=== PATIENT | female | born 1950 | race Caucasian/White ===

== ENCOUNTER 2023-03-11 02:25 | Day surgery (SDC) | payer MEDICARE, BC, SELFPAY ==
[2023-03-08 13:39] VITALS: BMI 24.3
--- NOTE | 2023-03-08 14:00 | PC.NURSE ---
Report to the Outpatient Waiting Room, entrance under the green pavilion located off [facility], at time __1230 on date _03/11/23 . Planned Procedure Time: __2:30 PM . Time changes happen often and if your time is changed the preop area will call you the afternoon before. - You and your visitor will be asked to self-screen and do not enter if you have any COVID symptoms. - A mask is optional within the hospital at this time. Patients may have clear liquids (water, carbonated beverages, clear teas, apple juice) until 3 hours prior to surgery (1030 AM) with a maximum of 20 ounces. - No food from midnight until time of surgery - Infants may have breast milk until 4 hours before surgery, formula 6 hours prior to surgery. - Children will be allowed to drink immediately following surgery. If applicable, please bring a bottle or sippy cup to assist with drinking. Juice, water, soda, and popsicles are readily available. For infants on formula, please bring formula the day of surgery. Pacifiers are allowed. Take the following medications with a SIP of water the morning of surgery: NONE DO NOT STOP ANY OF YOUR OTHER PRESCRIPTION MEDICATIONS PRIOR TO SURGERY ?EXCEPT THE FOLLOWING Medications to discontinue per physician NONE Date to take last dose Please no make-up, nail yi, hairspray, perfume, deodorant, or body powder the day of surgery. No jewelry (including any body piercings) or valuables the day of surgery, leave them at home. Please take a shower or bath the night before, or the morning of, surgery with an antibacterial soap. Wear comfortable, loose fitting clothing. Children are encouraged to wear pajamas. - Jewelry must be removed prior to entering the operating room. Rings and piercings that are not removed may be cut off. - The hospital will not accept responsibility for valuables. - Please leave all valuables, including medications, at home the day of surgery. If you are going home after surgery, a licensed frontload driver must drive you home. - NO public transportation without another adult if you receive anesthesia. - We recommend that an adult stay with you for 24 hours following discharge. - We also recommend that you do not drive, make important decision, drink alcoholic beverages, or take any drugs that were not prescribed by your health care provider for at least 24 hours after your discharge time. For Pediatric surgeries, we recommend two adults accompany the child home. Follow any additional instructions given to you from your surgeon. If you or anyone in your household have experienced Covid symptoms in the past week, please notify your surgeon or the nurse liaison at the phone number below for possible testing. Telephone instructions given to ___PATIENT and asked if any additional questions and then verbalized understanding. Patient advised to call surgeon office or pre surgery nurse liaison [phone] if any additional questions.
--- NOTE | 2023-03-09 07:45 | P.HP_ITS ---
H&P: HPI History of Present Illness Date/Time: 03/09/23 07:45 Chief Complaint: Urethral prolapse Narrative: She has thrombosed urethral mucosa. It is circumferential. It is thrombosed. She is quite uncomfortable. There is no urinary retention Review of Systems Review of Systems: All systems reviewed & are unremarkable except as noted in HPI and below [facility] Social History Social History Smoking status: Never smoker Second hand tobacco smoke exposure: No Alcohol intake: never Substance use: never Substance use type: does not use Living arrangements: alone Spiritual care concerns: No Meds Home Medications and Allergies Home Medications Medication Instructions Recorded Confirmed Type escitalopram oxalate 10 mg tablet 10 mg HS 03/08/23 03/08/23 History estradiol 0.01% (0.1 mg/gram) See Rx Instructions .Route .COMPLEX 03/08/23 03/08/23 History vaginal cream ezetimibe 10 mg tablet 10 mg HS 03/08/23 03/08/23 History lisinopril 40 mg tablet 40 mg DAILY 03/08/23 03/08/23 History metoprolol succinate 25 mg 25 mg PO HS 03/08/23 03/08/23 History tablet,extended release 24 hr phenazopyridine 200 mg tablet 200 mg TID 03/08/23 03/08/23 History Allergies Allergy/AdvReac Type Severity Reaction Status Date / Time erythromycin base AdvReac Rash Verified 03/08/23 14:01 latex AdvReac SWELLIG TO Verified 03/08/23 13:33 LIPS Exam Narrative: With thrombosed urethral prolapse It is circumferential Assessment and Plan Assessment and plan (1) Prolapsed urethral mucosa: Code(s): N36.8 - Other specified disorders of urethra Status: Acute Assessment and Plan: Excision of urethral prolapse. Understands risks of bleeding, infection, damage to surrounding structures. She understands the risk of urinary incontinence. She understands risk of recurrence. She may or may not need to go home with a Farmer catheter.
[2023-03-11] VITALS (8 sets, daily range): BP systolic 123–154; BP diastolic 63–83; PULSE 64–75; RESP 12–18; TEMP 36.2–37.2; O2SAT 65–100
--- NOTE | 2023-03-11 07:17 | WPDHPUPDATE1 ---
History and Physical Update Update Date/Time: 03/11/23 07:17 History and Physical has been reviewed, including an updated exam of the patient. There are NO changes in the patient's condition. Risks, benefits, and alternatives have been discussed and questions answered. Patient agrees to proceed with procedure.
--- NOTE | 2023-03-11 10:17 | ECG_ITS ---
Measurements Intervals [place] Rate: 62 P: 56 [place]: 146 QRS: 37 QRSD: 78 T: 53 QT: 411 QTc: 420 Interpretive Statements SINUS RHYTHM WITH SINUS ARRHYTHMIA BORDERLINE ST-T WAVE ABNORMALITY- INFERIOR LEADS BASELINE ARTIFACT- I, II, III, AVR, AVF, V5 BORDERLINE ECG NO PREVIOUS ECG AVAILABLE FOR COMPARISON Electronically Signed On 03-11-2023 13:13:38 CDT by Doug Garcia D.O.
[2023-03-11] MEDS: LACTATED RINGERS 1,000 ML 30 ML IV CONT ×2 (13:30→15:07)
--- NOTE | 2023-03-11 13:54 | WPDANESEPPF ---
Anes - Initial Pre Proc Eval Procedure: Operation Date: 03/11/23 14:30 Proposed Procedures p Excision of Prolapse Urethral Mucosa - Rolando Colvin MD Date/Time: 03/11/23 13:54 Surgeon: Rolando Colvin MD Pre Op Diagnosis: prolapse urethral mucosa Patient Data Age: 72 Gender: F Height: 1.59 m Weight: 60.3 kg Last Vital Signs Temp 37.2 C 03/11/23 12:43 Pulse 68 03/11/23 12:43 Resp 18 03/11/23 12:43 BP 150/80 H 03/11/23 12:43 Pulse Ox 95 03/11/23 12:43 O2 Del Method Room Air 03/11/23 12:43 Allergies Allergy/AdvReac Type Severity Reaction Status Date / Time erythromycin base AdvReac Rash Verified 03/11/23 13:32 latex AdvReac SWELLIG TO Verified 03/11/23 13:32 LIPS Home Medications Medication Instructions Recorded Confirmed Type escitalopram oxalate 10 mg tablet 10 mg HS 03/08/23 03/11/23 History estradiol 0.01% (0.1 mg/gram) See Rx Instructions .Route .COMPLEX 03/08/23 03/11/23 History vaginal cream ezetimibe 10 mg tablet 10 mg HS 03/08/23 03/11/23 History lisinopril 40 mg tablet 40 mg DAILY 03/08/23 03/11/23 History metoprolol succinate 25 mg 25 mg PO HS 03/08/23 03/11/23 History tablet,extended release 24 hr phenazopyridine 200 mg tablet 200 mg TID 03/08/23 03/11/23 History Patient hx anesthesia problems: none Family hx anesthesia problems: none Results Review: All pre-operative results and documents have been reviewed as part of the pre-operative evaluation. [facility] Past Medical History Medical History (Updated 03/11/23 @ 13:54 by Zac Barbosa MD) Breast cancer HTN (hypertension) Hyperlipidemia Surgical History Surgical History (Updated 03/11/23 @ 13:54 by Zac Barbosa MD) History of mastectomy Social History Social History Smoking status: Never smoker Second hand tobacco smoke exposure: No Alcohol intake: never Substance use: never Substance use type: does not use Living arrangements: alone Spiritual care concerns: No Anes - Eval Final PreProcedure Day of Procedure 03/11/23 13:54 Patient weight: normal Heart: regular rate and rhythm Lungs: clear to auscultation Airway: Mallampati scale class II Neurological: alert and oriented Last oral intake: >/= 8 hours ASA classification: III Emergent: no Anesthetic plan: proceed Anesthesia type and monitoring: general LMA and standard monitoring Results Review: All pre-operative results and documents have been reviewed as part of the pre-operative evaluation. Informed Consent: The patient's anesthetic plan and its attendant risks and benefits were discussed with the patient/family/POA. Questions were solicited and answers provided to the satisfaction of the patient/family/POA.
--- NOTE | 2023-03-11 15:07 | W.PM.PROC2 ---
Procedure Note - Detailed Date of Procedure 03/11/23 Pre-op Diagnosis prolapse urethral mucosa Post-op Diagnosis Same Procedure Performed Excision of prolapsed urethral mucosa Cystoscopy with complex catheter placement Surgeon Rolando Colvin MD Environmental Science Technician None Anesthesia General Indications This is a wounds circumferential urethral prolapse. It is got a chronic areas. She is here today for surgical excision. She understands risks of bleeding, infection, recurrence, inability remove the prolapse, voiding dysfunction including incontinence and retention. She agrees to proceed Findings Circumferential prolapsed urethral mucosa Description of Procedure She was correctly identified. Informed consent obtained. She from the operating room. She was given general anesthesia. She was placed in dorsal thigh position. She was prepped and draped sterile fashion. She was given appropriate perioperative antibiotics. A time-out was performed I placed Farmer catheter. I placed a [place] retractor. She had circumferential urethral prolapse with areas of necrosis and thrombosis. I grasped the prolapse tissue with an [place] clamp. I circumferentially excise the urethral prolapse. I placed a series of running and interrupted 4-0 Vicryl sutures to close mucosa to mucosa after the excision of the urethral prolapse. I was happy with the hemostasis. I attempted to replace the Farmer catheter however was difficult due to a urethral false passage. I used the cystoscope to drain the bladder. There was a anterior false passage noted. I was able to empty the bladder. The bladder was examined and was without abnormalities. She had mild trabeculations. No tumors or stones. Ureteral orifices are normal. Urethra is otherwise normal. I placed a guidewire into the bladder. I then placed a latex-free catheter over the guidewire to gravity drainage. She was awakened transferred to PACU in stable condition Implants None Estimated Blood Loss 5 Drains Yes (Farmer catheter) Packing No Pathology Yes (Prolapsed urethral mucosa) Complications No immediate complications Condition Stable Disposition PACU
== END 2023-03-11 17:03 | disposition home or self-care (01) ==
PROVIDERS: PCP Family Medicine; Visit Provider Urology
PROC: (CPT 53275; principal; 2023-03-11 14:30)
DX: N81.0 Urethrocele (principal); I10 Essential (primary) hypertension; E78.5 Hyperlipidemia, unspecified; Z85.3 Personal history of malignant neoplasm of breast
CPT/HCPCS: 53275; 88305; 93005; J1100; J2405; J2704; J3010; J7030; J7120